=== PATIENT | female | born 1995 | race Caucasian/White ===

== ENCOUNTER 2019-08-31 09:51 | Inpatient (IN) | payer OTHER ==
[2019-08-31] MEDS ORDERED: Sodium Chloride 0.9% 10 ML SDV IV PRN (10:08)
[2019-08-31] MEDS ORDERED: Citric Acid/Sodium Citrate Solution 30 ML Cup PO ONE (10:08)
[2019-08-31] MEDS ORDERED: ceFAZolin 2 GM in Premix Bag 1 BAG IV ONE (10:08)
[2019-08-31] MEDS ORDERED: Sodium Chloride 0.9% 2.5 ML Syringe FLUSH PRN (10:08)
[2019-08-31] MEDS ORDERED: Sodium Chloride 0.9% 10 ML Syringe FLUSH PRN (10:08)
[2019-08-31] MEDS ORDERED: Oxytocin/0.9 % Sodium Chloride 30 UNIT/500 ML BAG IV SCH (10:15)
[2019-08-31] MEDS: Lactated Ringers 1,000 ML IV SCH ×4 (10:17→21:13)
--- NOTE | 2019-08-31 10:51 | PCM.PREANE ---
Preanesthetic Assessment - Anesthesia/Transfusion/Family Hx Anesthesia History: Prior Anesthesia Without Reaction Family History of Anesthesia Reaction: No Transfusion History: No Prior Transfusion(s) - Review of Systems General: No Symptoms Pulmonary: No Symptoms Cardiovascular: No Symptoms Gastrointestinal: No Symptoms Neurological: No Symptoms Other: Reports: None - Physical Assessment NPO Status Date: 08/30/19 Height: 5 ft 1.5 in Weight: 101.605 kg ASA Class: 2 Mental Status: Alert & Oriented x3 Airway Class: Mallampati = 2 Dentition: Reports: Normal Dentition ROM/Head Extension: Full Lungs: Clear to Auscultation, Normal Respiratory Effort Cardiovascular: Regular Rate, Regular Rhythm - Allergies Allergies/Adverse Reactions: Allergies Allergy/AdvReac Type Severity Reaction Status Date / Time ciprofloxacin [From Cipro] Allergy Hives Verified 08/28/19 07:06 ciprofloxacin HCl Allergy Hives Verified 08/28/19 07:06 [From Cipro] - Blood Blood Available: Yes - Anesthesia Plan Pre-Op Medication Ordered: Other (bicitra) - Acknowledgements Anesthesia Type Planned: Spinal Pt an Appropriate Candidate for the Planned Anesthesia: Yes Alternatives and Risks of Anesthesia Discussed w Pt/Guardian: Yes Pt/Guardian Understands and Agrees with Anesthesia Plan: Yes Additional Comments: scheduled elective repeat c section, pmh sig for thyroid replacement. prior c section sttarted as a labor epidural and was also used for her c section. PLAN: spinal with duramorph PreAnesthesia Questionnaire - Past Health History Medical/Surgical History: Denies Medical/Surgical History HEENT History: Reports: Other (See Below) Other HEENT History: wears glasses Cardiovascular History: Reports: None Respiratory History: Reports: None Gastrointestinal History: Reports: Other (See Below) Other Gastrointestinal History: occasional heartburn with Genitourinary History: Reports: None [facility] NURSE History: Reports: Musculoskeletal History: Reports: None Neurological History: Reports: None Psychiatric History: Reports: None Endocrine/Metabolic History: Reports: Hypothyroidism, Obesity/BMI 30+ Hematologic History: Reports: None Immunologic History: Reports: None Oncologic (Cancer) History: Reports: None Dermatologic History: Reports: Eczema Other Dermatologic History: eczema to hands - Past Surgical History Head Surgeries/Procedures: Reports: None HEENT Surgical History: Reports: None Cardiovascular Surgical History: Reports: None Respiratory Surgical History: Reports: None GI Surgical History: Reports: None Female Surgical History: Reports: Section Endocrine Surgical History: Reports: None Neurological Surgical History: Reports: None Musculoskeletal Surgical History: Reports: None Oncologic Surgical History: Reports: None - SUBSTANCE USE Smoking Status *Q: Former Smoker - HOME MEDS Home Medications: Home Meds Levothyroxine Sodium [Levoxyl] 50 mcg PO DAILY 08/28/19 [History] - CURRENT (IN HOUSE) MEDS Current Meds: Current Medications Lactated Ringer's (Ringers, Lactated) 1,000 mls @ 500 mls/hr IV BOLUS [facility] Last Admin: 08/31/19 10:17 Dose: 500 mls/hr Oxytocin/Sodium Chloride (Oxytocin 30 Unit/500 Ml-Ns) 30 unit in 500 mls @ 250 mls/hr IV TITRATE [facility] Sodium Chloride (Saline Flush) 10 ml FLUSH ASDIRECTED PRN PRN Reason: Keep Vein Open Sodium Chloride (Saline Flush) 2.5 ml FLUSH ASDIRECTED PRN PRN Reason: Keep Vein Open Sodium Chloride (Normal Saline) 10 ml IV ASDIRECTED PRN PRN Reason: IV Use Discontinued Medications Citric Acid/Sodium Citrate (Bicitra Solution) 30 ml PO ONETIME ONE Stop: 08/31/19 10:09 Cefazolin Sodium/Dextrose 2 gm (/ Premix) 50 mls @ 100 mls/hr IV ONETIME ONE Stop: 08/31/19 10:37
[2019-08-31] MEDS ORDERED: Morphine PF 10 MG/10 ML SDV ONE (11:49)
[2019-08-31] MEDS ORDERED: Ondansetron 4 MG/2 ML SDV ONE (11:49)
[2019-08-31] MEDS ORDERED: Oxytocin 10 Units/1 ML SDV ONE (11:49)
[2019-08-31] MEDS ORDERED: Phenylephrine/Normal Saline 100 MCG/ML 10 ML Syringe ONE (12:06)
[2019-08-31] MEDS ORDERED: Phenylephrine 1% 10 MG/ML SDV ONE (12:08)
[2019-08-31] MEDS ORDERED: Glycopyrrolate 0.2 MG/ML SDV ONE (12:10)
[2019-08-31] MEDS ORDERED: Midazolam 1 MG/ML 2 ML SDV ONE (12:19)
[2019-08-31] MEDS ORDERED: Bisacodyl 10 MG Supp RECTAL PRN (12:54)
[2019-08-31] MEDS ORDERED: Ondansetron 4 MG/2 ML SDV IVPUSH PRN (12:54)
[2019-08-31] MEDS ORDERED: Misoprostol 200 MCG Tab RECTAL PRN (12:54)
[2019-08-31] MEDS ORDERED: Ibuprofen 800 MG Tab PO PRN (12:54)
[2019-08-31] MEDS ORDERED: Aluminum Hydroxide/Magnesium Hydroxide/Simethicone Susp 30 ML Cup PO PRN (12:54)
[2019-08-31] MEDS ORDERED: Lanolin 100% Cream 7 GM Tube TOP PRN (12:54)
[2019-08-31] MEDS ORDERED: Tranexamic Acid 1,000 MG in Sodium Chloride 0.9% 100 ML IV PRN (12:54)
[2019-08-31] MEDS ORDERED: diphenhydrAMINE 50 MG/ML SDV IVPUSH PRN (12:54)
[2019-08-31] MEDS ORDERED: Oxytocin 10 Units/1 ML SDV IM PRN (12:54)
[2019-08-31] MEDS ORDERED: Methylergonovine 0.2 MG/1 ML Amp IM PRN (12:54)
[2019-08-31] MEDS ORDERED: Acetaminophen/oxyCODONE 325-5 MG Tab PO PRN (12:54)
--- NOTE | 2019-08-31 12:54 | PCM.OPNOTE ---
- General Post-Op/Procedure Note Date of Surgery/Procedure: 08/31/19 Operative Procedure(s): Repeat c section Findings: Viable male APGARs 8, 9 weight 4000 gm. Intact placenta with 3V cord Pre Op Diagnosis: 39 week IUP. Previous c section, desires repeat Post-Op Diagnosis: Same Anesthesia Technique: Spinal Primary Surgeon: Leny Nunes Fluid Replacement, Intraop: 1,600 EBL in mLs: 500 Complications: none known Condition: Stable Free Text/Narrative:: Dictation [id number]
[2019-08-31] MEDS: Ketorolac 30 MG/ML SDV IVPUSH SCH ×2 (13:19→18:47)
[2019-08-31] MEDS ORDERED: Promethazine 25 MG/ML SDV IM ONE (13:31)
[2019-08-31] MEDS ORDERED: Promethazine 25 MG/ML SDV ONE (13:33)
--- NOTE | 2019-08-31 13:56 | OR ---
SURGEON: Leny Nunes M.D. DATE OF PROCEDURE: 08/31/2019 PREOPERATIVE DIAGNOSES: 1. A 39-week intrauterine . 2. Previous section, desires repeat. POSTOPERATIVE DIAGNOSES: 1. A 39-week intrauterine . 2. Previous section, desires repeat. PROCEDURE: Repeat low-transverse section. PRIMARY SURGEON: Leny Nunes MD. SURVEILLANCE DUAL RATE OFFICER: Jonathan Hernandez. ANESTHESIA: Spinal. ESTIMATED BLOOD LOSS: 500 mL. FLUIDS: 1600 mL of crystalloid. COMPLICATIONS: None known. FINDINGS: Viable male. scores 8 at one minute and 9 at five minutes. Weight of 4000 g. Intact placenta, 3-vessel cord. Normal-appearing pelvis. DISPOSITION: Infant to nursery, mom to PACU in stable condition. PROCEDURE DETAILS: Sheron is a 24-year-old, G3, P2, at 39 weeks' gestational age who presents on the morning of 08/31/2019 for scheduled repeat delivery. Risks of procedure have been discussed. Proper consent obtained. The patient was taken to the operating room where she underwent spinal anesthetic, was then placed in dorsal supine position with leftward tilt. SCDs to lower extremities. Mccartney to gravity. Received Ancef prophylactically. Time - out was performed. After being prepped and draped in the usual sterile fashion, anesthesia was tested and found to be adequate. Previous Pfannenstiel scar was now excised. Subcutaneous tissue was incised down to the level of the rectus fascia, which was incised in midline, lateralized and dissected sharply and bluntly. The superior aspect of fascia was tented upward, dissected sharply and bluntly away from underlying muscle. In a similar aspect, this was performed in the inferior aspect of the fascia. Rectus muscle was in midline. Peritoneum was entered. Rectus muscle and peritoneum were lateralized bluntly. Uterine position and position palpated. Self-retaining retractor now gently placed. Bladder flap was created sharply and bluntly. Bladder was mobilized away from the lower uterine segment. Low-transverse hysterotomy was now performed. Uterine cavity was entered with blunt-ended scalpel. Hysterotomy was lateralized bluntly. Amniotomy was performed, clear fluid was returned. Head was flexed, delivered from the pelvis. The head was delivered followed by anterior shoulder, posterior shoulder, and the remainder of the body without difficulty. The infant's oropharynx and nares were bulb suctioned. Cord was clamped x2 and cut. was handed off to attending nursery staff. Cord arterial, cord venous, cord blood sampling obtained. The placenta was now delivered. Uterine cavity was cleared of all clot and debris. Hysterotomy was repaired using 0 Vicryl in continuous running locked fashion followed by a re- imbricating layer. Areas of serosal oozing were now cauterized. Posterior aspect of the uterus was inspected. No defects or hematomas were found to be forming. The region was well irrigated, suction dried. Uterus returned to the abdominal cavity. Colonic gutters were cleared of all clot and debris, well irrigated, suction dried. Hysterotomy was again inspected, found to be hemostatic. Self-retaining retractor now gently removed. Bladder blade was placed. Hysterotomy once again inspected, found to be hemostatic. Bladder blade was removed. The rectus muscle and peritoneum were now reapproximated using 0 Vicryl in inverted mattress suture technique. Anterior aspect of the muscle, posterior aspect of the fascia closely inspected. Any areas of oozing were cauterized. The rectus fascia was reapproximated using 0 Vicryl in continuous running fashion, beginning laterally on each side and meeting in the midline. Subcutaneous tissue was well irrigated, suction dried. Any areas of oozing were cauterized. Skin edges were reapproximated using 4-0 Vicryl on a Raheel needle in subcuticular fashion followed by half-inch Steri- Strips and Mastisol. Uterus remained firm. Sponge, instrument, and needle count was correct x2. The patient has tolerated the procedure well overall. She will go to PACU in stable condition. DAYNE / DIOGO /[id number] STACIE
[2019-08-31] MEDS: Simethicone 80 MG Tab.Chew PO SCH (17:41)
[2019-08-31] MEDS: Docusate Sodium 100 MG Cap PO SCH (21:13)
[2019-09-01] MEDS: Simethicone 80 MG Tab.Chew PO SCH ×4 (01:18→17:59)
[2019-09-01] MEDS: Ketorolac 30 MG/ML SDV IVPUSH SCH ×3 (01:19→12:58)
--- NOTE | 2019-09-01 07:46 | PCM.PNPP ---
- General Info Date of Service: 09/01/19 Subjective Update: 24yo s/p Repeat , Good pain control PPD 1 Functional Status: Reports: Pain Controlled, Tolerating Diet, Ambulating, Urinating - Review of Systems General: Reports: No Symptoms HEENT: Reports: No Symptoms Pulmonary: Reports: No Symptoms Cardiovascular: Reports: No Symptoms Gastrointestinal: Reports: No Symptoms Genitourinary: Reports: No Symptoms Musculoskeletal: Reports: No Symptoms Skin: Reports: No Symptoms Neurological: Reports: No Symptoms Psychiatric: Reports: No Symptoms - General Info Date of Service: 09/01/19 - Patient Data Vital Signs - Most Recent: Last Vital Signs Temp 35.3 C 09/01/19 04:41 Pulse 97 09/01/19 06:00 Resp 17 09/01/19 06:00 BP 99/53 L 09/01/19 04:41 Pulse Ox 97 09/01/19 06:00 Weight - Most Recent: 99.79 kg I&O - Last 24 Hours: Intake & Output 08/31/19 09/01/19 09/01/19 22:59 06:59 14:59 Output Total 700 Balance -700 Lab Results - Last 24 Hours: Laboratory Results - last 24 hr 08/31/19 08/31/19 08/31/19 Range/Units 10:50 10:50 12:21 WBC 13.58 H (4.0-11.0) K/uL RBC 4.24 L (4.30-5.90) M/uL Hgb 12.6 (12.0-16.0) g/dL Hct 37.3 (36.0-46.0) % MCV 88.0 (80.0-98.0) fL MCH 29.7 (27.0-32.0) pg MCHC 33.8 (31.0-37.0) g/dL RDW Std Deviation 43.7 (28.0-62.0) fl RDW Coeff of Demetra 14 (11.0-15.0) % Plt Count 194 (150-400) K/uL MPV 11.00 (7.40-12.00) fL Nucleated RBC % 0.0 /100WBC Nucleated RBCs # 0 K/uL Cord ABG pH 7.287 (7.18-7.38) Cord ABG Base Excess -3 (-10--2) Cord VBG pH (7.25-7.45) Cord VBG Base Excess (-10--2) Blood Type A POSITIVE Antibody Screen POSITIVE Antibody Identification Anti-Jka Antigen Typing Jka Antigen - NEGATIVE Crossmatch See Detail 08/31/19 09/01/19 Range/Units 12:21 07:11 WBC (4.0-11.0) K/uL RBC (4.30-5.90) M/uL Hgb 11.0 L (12.0-16.0) g/dL Hct 33.0 L (36.0-46.0) % MCV (80.0-98.0) fL MCH (27.0-32.0) pg MCHC (31.0-37.0) g/dL RDW Std Deviation (28.0-62.0) fl RDW Coeff of Demetra (11.0-15.0) % Plt Count (150-400) K/uL MPV (7.40-12.00) fL Nucleated RBC % /100WBC Nucleated RBCs # K/uL Cord ABG pH (7.18-7.38) Cord ABG Base Excess (-10--2) Cord VBG pH 7.324 (7.25-7.45) Cord VBG Base Excess -4 (-10--2) Blood Type Antibody Screen Antibody Identification Antigen Typing Crossmatch Med Orders - Current: Current Medications Al Hydroxide/Mg Hydroxide (Mag-Al Plus) 30 ml PO Q8H PRN PRN Reason: Heartburn Bisacodyl (Dulcolax) 10 mg RECTAL ONETIME PRN PRN Reason: Constipation Diphenhydramine HCl (Benadryl) 25 mg IVPUSH Q6H PRN PRN Reason: Itching or Nausea Docusate Sodium (Colace) 100 mg PO BID [facility] Last Admin: 08/31/19 21:13 Dose: 100 mg Emollient Ointment (Lansinoh Hpa) 0 gm TOP ASDIRECTED PRN PRN Reason: Sore Nipples Lactated Ringer's (Ringers, Lactated) 1,000 mls @ 500 mls/hr IV BOLUS [facility] Last Admin: 08/31/19 11:20 Dose: 500 mls/hr Oxytocin/Sodium Chloride (Oxytocin 30 Unit/500 Ml-Ns) 30 unit in 500 mls @ 250 mls/hr IV TITRATE [facility] Tranexamic Acid 1,000 mg/ (Sodium Chloride) 110 mls @ 660 mls/hr IV ONETIME PRN PRN Reason: Bleeding Lactated Ringer's (Ringers, Lactated) 1,000 mls @ 125 mls/hr IV ASDIRECTED [facility] Last Admin: 08/31/19 21:13 Dose: 125 mls/hr Ibuprofen (Motrin) 800 mg PO Q8H PRN PRN Reason: mild pain or fever Ketorolac Tromethamine (Toradol) 30 mg IVPUSH Q6H [facility] Stop: 09/01/19 13:01 Last Admin: 09/01/19 06:49 Dose: 30 mg Methylergonovine Maleate (Methergine) 0.2 mg IM ONETIME PRN PRN Reason: Excessive Vaginal Bleeding Misoprostol (Cytotec) 1,000 mcg RECTAL ONETIME PRN PRN Reason: excessive bleeding Ondansetron HCl (Zofran) 4 mg IVPUSH Q4H PRN PRN Reason: Nausea/Vomiting Last Admin: 08/31/19 17:22 Dose: 4 mg Oxycodone/Acetaminophen (Percocet 325-5 Mg) 1 tab PO Q4H PRN PRN Reason: Pain (moderate 4-6) Oxycodone/Acetaminophen (Percocet 325-5 Mg) 2 tab PO Q4H PRN PRN Reason: Pain (moderate 4-6) Oxytocin (Pitocin) 10 unit IM ASDIRECTED PRN PRN Reason: Excessive Vaginal Bleeding Simethicone (Simethicone) 160 mg PO QID [facility] Last Admin: 09/01/19 06:50 Dose: 160 mg Sodium Chloride (Saline Flush) 10 ml FLUSH ASDIRECTED PRN PRN Reason: Keep Vein Open Sodium Chloride (Saline Flush) 2.5 ml FLUSH ASDIRECTED PRN PRN Reason: Keep Vein Open Sodium Chloride (Normal Saline) 10 ml IV ASDIRECTED PRN PRN Reason: IV Use Discontinued Medications Citric Acid/Sodium Citrate (Bicitra Solution) 30 ml PO ONETIME ONE Stop: 08/31/19 10:09 Last Admin: 08/31/19 11:32 Dose: 15 ml Glycopyrrolate (Robinul) Confirm Administered Dose 0.2 mg .ROUTE .STK-MED ONE Stop: 08/31/19 12:11 Cefazolin Sodium/Dextrose 2 gm (/ Premix) 50 mls @ 100 mls/hr IV ONETIME ONE Stop: 08/31/19 10:37 Midazolam HCl (Versed 1 Mg/Ml) Confirm Administered Dose 2 mg .ROUTE .STK-MED ONE Stop: 08/31/19 12:20 Morphine Sulfate (Duramorph Pf) Confirm Administered Dose 10 mg .ROUTE .STK-MED ONE Stop: 08/31/19 11:50 Ondansetron HCl (Zofran) Confirm Administered Dose 4 mg .ROUTE .STK-MED ONE Stop: 08/31/19 11:50 Oxytocin (Pitocin) Confirm Administered Dose 30 unit .ROUTE .STK-MED ONE Stop: 08/31/19 11:50 Phenylephrine HCl (Phenylephrine In Ns 100 Mcg/Ml) Confirm Administered Dose 1 mg .ROUTE .STK-MED ONE Stop: 08/31/19 12:07 Phenylephrine HCl (Yoni-Synephrine) Confirm Administered Dose 10 mg .ROUTE .STK- MED ONE Stop: 08/31/19 12:09 Promethazine HCl (Phenergan) 12.5 mg IM ONETIME ONE Stop: 08/31/19 13:32 Last Admin: 08/31/19 13:36 Dose: 12.5 mg Promethazine HCl (Phenergan) Confirm Administered Dose 25 mg .ROUTE .STK-MED ONE Stop: 08/31/19 13:34 - Interaction Support Person: - Recovery Exam Fundal Tone: Firm Fundal Level: 1 Fingerbreadths Below Umbilicus Fundal Placement: Midline Lochia Amount: Scant Lochia Color: Rubra/Red Perineum Description: Intact, Minimal Bruising/Swelling Episiotomy/Laceration: None Bladder Status: Indwelling Catheter in Place Urinary Elimination: Indwelling Catheter - Exam General: Alert HEENT: Pupils Equal Neck: Supple Lungs: Clear to Auscultation Cardiovascular: Regular Rate, Regular Rhythm GI/Abdominal Exam: Normal Bowel Sounds Extremities: Normal Inspection Wound/Incisions: Dressing Dry and Intact Neurological: No New Focal Deficit Psy/Mental Status: Alert - Problem List & Annotations (1) delivery, delivered, current hospitalization SNOMED Code(s): 932718957 Code(s): O82 - ENCOUNTER FOR DELIVERY WITHOUT INDICATION Status: Acute Current Visit: No - Problem List Review Problem List Initiated/Reviewed/Updated: Yes - Assessment Assessment:: 24yo P1 s/p Repeat POD 1 Stable , ambulating , voiding and tolerating regular diet - Plan Plan:: Routine Pain control as needed Ambulating [place] Possible discharge tomorrow
--- NOTE | 2019-09-01 08:57 | PCM48HPAN ---
Post Anesthesia Note - EVALUATION WITHIN 48HRS OF ANESTHETIC Vital Signs in Normal Range: Yes Patient Participated in Evaluation: Yes Respiratory Function Stable: Yes Airway Patent: Yes Cardiovascular Function Stable: Yes Hydration Status Stable: Yes Pain Control Satisfactory: Yes Nausea and Vomiting Control Satisfactory: Yes Mental Status Recovered: Yes Vital Signs: Last Vital Signs Temp 36.1 C 09/01/19 08:00 Pulse 90 09/01/19 08:00 Resp 16 09/01/19 08:00 BP 99/53 L 09/01/19 04:41 Pulse Ox 98 09/01/19 08:00
[2019-09-01] MEDS: Docusate Sodium 100 MG Cap PO SCH ×2 (10:19→20:53)
[2019-09-01] MEDS: Acetaminophen/oxyCODONE 325-5 MG Tab PO PRN (17:58)
[2019-09-02] MEDS: Acetaminophen/oxyCODONE 325-5 MG Tab PO PRN ×2 (00:01→04:48)
[2019-09-02] MEDS: Simethicone 80 MG Tab.Chew PO SCH ×2 (00:04→08:01)
[2019-09-02] MEDS: Docusate Sodium 100 MG Cap PO SCH (08:01)
[2019-09-02 08:03] VITALS: BP 106/67; PULSE 78
--- NOTE | 2019-09-02 10:18 | PCM.PNPP ---
- General Info Date of Service: 09/02/19 Subjective Update: 24yo s/p Repeat , Good pain control POD 2 Functional Status: Reports: Pain Controlled, Tolerating Diet, Ambulating, Urinating - Review of Systems General: Reports: No Symptoms HEENT: Reports: No Symptoms Pulmonary: Reports: No Symptoms Cardiovascular: Reports: No Symptoms Gastrointestinal: Reports: No Symptoms Genitourinary: Reports: No Symptoms Musculoskeletal: Reports: No Symptoms Skin: Reports: No Symptoms Neurological: Reports: No Symptoms Psychiatric: Reports: No Symptoms - General Info Date of Service: 09/02/19 - Patient Data Vital Signs - Most Recent: Last Vital Signs Temp 36.1 C 09/02/19 08:00 Pulse 78 09/02/19 08:00 Resp 16 09/02/19 08:00 BP 106/67 09/02/19 08:00 Pulse Ox 97 09/02/19 08:00 Weight - Most Recent: 99.79 kg Med Orders - Current: Current Medications Al Hydroxide/Mg Hydroxide (Mag-Al Plus) 30 ml PO Q8H PRN PRN Reason: Heartburn Bisacodyl (Dulcolax) 10 mg RECTAL ONETIME PRN PRN Reason: Constipation Diphenhydramine HCl (Benadryl) 25 mg IVPUSH Q6H PRN PRN Reason: Itching or Nausea Docusate Sodium (Colace) 100 mg PO BID [facility] Last Admin: 09/02/19 08:01 Dose: 100 mg Emollient Ointment (Lansinoh Hpa) 0 gm TOP ASDIRECTED PRN PRN Reason: Sore Nipples Lactated Ringer's (Ringers, Lactated) 1,000 mls @ 500 mls/hr IV BOLUS [facility] Last Admin: 08/31/19 11:20 Dose: 500 mls/hr Oxytocin/Sodium Chloride (Oxytocin 30 Unit/500 Ml-Ns) 30 unit in 500 mls @ 250 mls/hr IV TITRATE [facility] Tranexamic Acid 1,000 mg/ (Sodium Chloride) 110 mls @ 660 mls/hr IV ONETIME PRN PRN Reason: Bleeding Lactated Ringer's (Ringers, Lactated) 1,000 mls @ 125 mls/hr IV ASDIRECTED [facility] Last Admin: 08/31/19 21:13 Dose: 125 mls/hr Ibuprofen (Motrin) 800 mg PO Q8H PRN PRN Reason: mild pain or fever Last Admin: 09/02/19 04:47 Dose: 800 mg Methylergonovine Maleate (Methergine) 0.2 mg IM ONETIME PRN PRN Reason: Excessive Vaginal Bleeding Misoprostol (Cytotec) 1,000 mcg RECTAL ONETIME PRN PRN Reason: excessive bleeding Ondansetron HCl (Zofran) 4 mg IVPUSH Q4H PRN PRN Reason: Nausea/Vomiting Last Admin: 08/31/19 17:22 Dose: 4 mg Oxycodone/Acetaminophen (Percocet 325-5 Mg) 1 tab PO Q4H PRN PRN Reason: Pain (moderate 4-6) Last Admin: 09/01/19 16:25 Dose: 1 tab Oxycodone/Acetaminophen (Percocet 325-5 Mg) 2 tab PO Q4H PRN PRN Reason: Pain (moderate 4-6) Last Admin: 09/02/19 04:48 Dose: 2 tab Oxytocin (Pitocin) 10 unit IM ASDIRECTED PRN PRN Reason: Excessive Vaginal Bleeding Simethicone (Simethicone) 160 mg PO QID [facility] Last Admin: 09/02/19 08:01 Dose: 160 mg Sodium Chloride (Saline Flush) 10 ml FLUSH ASDIRECTED PRN PRN Reason: Keep Vein Open Sodium Chloride (Saline Flush) 2.5 ml FLUSH ASDIRECTED PRN PRN Reason: Keep Vein Open Sodium Chloride (Normal Saline) 10 ml IV ASDIRECTED PRN PRN Reason: IV Use Discontinued Medications Citric Acid/Sodium Citrate (Bicitra Solution) 30 ml PO ONETIME ONE Stop: 08/31/19 10:09 Last Admin: 08/31/19 11:32 Dose: 15 ml Glycopyrrolate (Robinul) Confirm Administered Dose 0.2 mg .ROUTE .STK-MED ONE Stop: 08/31/19 12:11 Cefazolin Sodium/Dextrose 2 gm (/ Premix) 50 mls @ 100 mls/hr IV ONETIME ONE Stop: 08/31/19 10:37 Ketorolac Tromethamine (Toradol) 30 mg IVPUSH Q6H [facility] Stop: 09/01/19 13:01 Last Admin: 09/01/19 12:58 Dose: 30 mg Midazolam HCl (Versed 1 Mg/Ml) Confirm Administered Dose 2 mg .ROUTE .STK-MED ONE Stop: 08/31/19 12:20 Morphine Sulfate (Duramorph Pf) Confirm Administered Dose 10 mg .ROUTE .STK-MED ONE Stop: 08/31/19 11:50 Ondansetron HCl (Zofran) Confirm Administered Dose 4 mg .ROUTE .STK-MED ONE Stop: 08/31/19 11:50 Oxytocin (Pitocin) Confirm Administered Dose 30 unit .ROUTE .STK-MED ONE Stop: 08/31/19 11:50 Phenylephrine HCl (Phenylephrine In Ns 100 Mcg/Ml) Confirm Administered Dose 1 mg .ROUTE .STK-MED ONE Stop: 08/31/19 12:07 Phenylephrine HCl (Yoni-Synephrine) Confirm Administered Dose 10 mg .ROUTE .STK- MED ONE Stop: 08/31/19 12:09 Promethazine HCl (Phenergan) 12.5 mg IM ONETIME ONE Stop: 08/31/19 13:32 Last Admin: 08/31/19 13:36 Dose: 12.5 mg Promethazine HCl (Phenergan) Confirm Administered Dose 25 mg .ROUTE .STK-MED ONE Stop: 08/31/19 13:34 - Interaction Support Person: - Recovery Exam Fundal Tone: Firm Fundal Level: 1 Fingerbreadths Below Umbilicus Fundal Placement: Midline Lochia Amount: Scant Lochia Color: Rubra/Red Perineum Description: Intact, Minimal Bruising/Swelling Episiotomy/Laceration: None Bladder Status: Voiding Urinary Elimination: Voided - Exam General: Alert HEENT: Pupils Equal Lungs: Clear to Auscultation Cardiovascular: Regular Rate, Regular Rhythm GI/Abdominal Exam: Normal Bowel Sounds Extremities: Normal Inspection Wound/Incisions: Dressing Dry and Intact Psy/Mental Status: Alert - Problem List & Annotations (1) delivery, delivered, current hospitalization SNOMED Code(s): 786530499 Code(s): O82 - ENCOUNTER FOR DELIVERY WITHOUT INDICATION Status: Acute Current Visit: No - Problem List Review Problem List Initiated/Reviewed/Updated: Yes - Assessment Assessment:: 24yo P1 s/p Repeat POD 2 Stable , ambulating , voiding and tolerating regular diet - Plan Plan:: Routine Discharge home
== END 2019-09-02 11:17 | disposition home or self-care (01) | DRG 788 ==
LOC: MW.OB 09:51 → OBSVTOIN 12:54 → MW.OB 17:40
PROVIDERS: ADMIT Obstetrics & Gynecology; ATTEND Obstetrics & Gynecology
PROC: 10D00Z1 Extraction of Products of Conception, Low, Open Approach (ICD-10-PCS; principal; 2019-08-31)
DX: O34.211 Maternal care for low transverse scar from previous cesarean delivery (principal); O99.284 Endocrine, nutritional and metabolic diseases complicating childbirth; E03.9 Hypothyroidism, unspecified; O99.52 Diseases of the respiratory system complicating childbirth; J45.909 Unspecified asthma, uncomplicated; O99.214 Obesity complicating childbirth; E66.9 Obesity, unspecified; Z3A.39 39 weeks gestation of pregnancy; Z79.899 Other long term (current) drug therapy; Z79.51 Long term (current) use of inhaled steroids; Z87.891 Personal history of nicotine dependence; Z88.1 Allergy status to other antibiotic agents; Z37.0 Single live birth
CPT/HCPCS: 01961; 36415; 59025; 82803; 85014; 85018; 85027; 86592; 86850; 86870; 86900; 86901; 86902; 86920; 86921; 86922; A9270-GY; J1885; J2250; J2270; J2370; J2405; J2550; J2590; J3490; J7120

== ENCOUNTER 2023-04-30 04:07 | Emergency (ER) | payer OTHER ==
[2023-04-30 04:17] VITALS: BP 127/77; PULSE 106
[2023-04-30] MEDS ORDERED: Acetaminophen 325 MG Tab PO ONE (04:32)
[2023-04-30 05:46] LABS: BASOPHILS PERCENT AUTO 0.2 % (0.0-1.5); EOSINOPHILS ABSOLUTE AUTO 0.3 K/uL (0.0-0.7); EOSINOPHILS PERCENT AUTO 3.3 % (0.0-7.0); HEMATOCRIT 38.6 % (36.0-46.0); LYMPHOCYTES ABSOLUTE AUTO 1.9 K/uL (0.6-2.4); LYMPHOCYTES PERCENT AUTO 20.2 % (16.0-40.0); MEAN CORPUSCULAR HEMOGLOBIN 30.1 pg (27.0-32.0); MEAN CORPUSCULAR HGB CONC 33.7 g/dL (31.0-37.0); MEAN CORPUSCULAR VOLUME 89.4 fL (80.0-98.0); MONOCYTES ABSOLUTE AUTO 0.5 K/uL (0.0-0.8); MONOCYTES PERCENT AUTO 5.6 % (0.0-15.0); NEUTROPHILS ABSOLUTE AUTO 6.8 K/uL (1.4-5.7); NEUTROPHILS PERCENT AUTO 70.7 % (48.0-80.0); RED BLOOD CELL COUNT 4.32 M/uL (4.30-5.90); WHITE BLOOD CELL COUNT,WBC 9.57 K/uL (4.0-11.0)
[2023-04-30 06:08] LABS: ALBUMIN 3.7 g/dL (3.4-5.0); BILIRUBIN TOTAL 0.7 mg/dL (0.2-1.0); CARBON DIOXIDE,CO2 28.2 mmol/L (21.0-32.0); CREATININE 0.9 mg/dL (0.6-1.0); EST CRCL DRUG DOSING (CG) 72.95 mL/min; POTASSIUM,K 3.2 mmol/L (3.5-5.1); PROTEIN TOTAL,TP 7.3 g/dL (6.4-8.2)
[2023-04-30 06:39] LABS: PLATELET COUNT,PLT 107 K/uL (150-400)
== END 2023-04-30 07:33 | disposition home or self-care (01) ==
LOC: MW.ED 04:07
DX: O03.9 Complete or unspecified spontaneous abortion without complication (principal); E03.9 Hypothyroidism, unspecified; E66.9 Obesity, unspecified; Z88.1 Allergy status to other antibiotic agents; Z79.899 Other long term (current) drug therapy; Z68.31 Body mass index [BMI] 31.0-31.9, adult
CPT/HCPCS: 36415; 76817; 80053; 84702; 85025; 99284; A9270; 99283

== ENCOUNTER 2024-06-09 22:17 | Inpatient (IN) | payer BC ==
[2024-06-09] MEDS ORDERED: Sodium Chloride 0.9% 20 ML SDV IV PRN (23:06)
[2024-06-09] MEDS ORDERED: Sodium Chloride 0.9% 2.5 ML Syringe FLUSH PRN (23:06)
[2024-06-09] MEDS: Sodium Chloride 0.9% 10 ML Syringe FLUSH PRN (23:30)
[2024-06-09] MEDS: Ondansetron 4 MG/2 ML SDV IVPUSH ONE (23:30)
[2024-06-09] MEDS: Lactated Ringers 1,000 ML IV ONE (23:30)
[2024-06-10] MEDS: Lactated Ringers 1,000 ML IV SCH ×2 (00:30→10:40)
[2024-06-10] MEDS ORDERED: Acetaminophen 500 MG Tab PO ONE (04:39)
[2024-06-10] MEDS ORDERED: ceFAZolin 2 GM in Sodium Chloride 0.9% 50 ML IV ONE (04:49)
[2024-06-10] MEDS ORDERED: Sodium Chloride 0.9% 10 ML Syringe FLUSH PRN (04:49)
[2024-06-10] MEDS ORDERED: Citric Acid/Sodium Citrate Solution 30 ML Cup PO ONE (04:49)
[2024-06-10] MEDS ORDERED: Sodium Chloride 0.9% 2.5 ML Syringe FLUSH PRN (04:49)
[2024-06-10] MEDS ORDERED: Sodium Chloride 0.9% 20 ML SDV IV PRN (04:49)
[2024-06-10] MEDS ORDERED: Butorphanol 2 MG/ML SDV ONE (04:58)
[2024-06-10] MEDS ORDERED: Oxytocin/0.9 % Sodium Chloride 30 UNIT/500 ML BAG IV SCH (05:00)
[2024-06-10] MEDS ORDERED: Lactated Ringers 1,000 ML IV SCH ×2 (05:00→18:45)
[2024-06-10] MEDS: Butorphanol 2 MG/ML SDV IVPUSH PRN (05:15)
[2024-06-10] MEDS ORDERED: Dexamethasone 4 MG/ML 5 ML MDV ONE (06:08)
[2024-06-10] MEDS ORDERED: ceFAZolin 2 GM Vial ONE (06:08)
[2024-06-10] MEDS ORDERED: dexmedeTOMIDine HCl 200 MCG/2 ML SDV ONE (06:08)
[2024-06-10] MEDS ORDERED: Phenylephrine 1% 10 MG/ML SDV ONE (06:08)
[2024-06-10] MEDS ORDERED: Tranexamic Acid 1,000 MG/10 ML Vial ONE (06:08)
[2024-06-10] MEDS ORDERED: Ondansetron 4 MG/2 ML SDV ONE ×2 (06:08→09:20)
[2024-06-10] MEDS ORDERED: Oxytocin 10 Units/1 ML SDV ONE (06:08)
[2024-06-10] MEDS ORDERED: Ropivacaine 0.5% 5 MG/ML 30 ML SDV ONE (06:08)
[2024-06-10] MEDS ORDERED: Calcium Chloride 10% 1 GM/10 ML Syringe ONE (06:08)
[2024-06-10] MEDS ORDERED: ePHEDrine 50 MG/ML SDV ONE (06:08)
[2024-06-10] MEDS ORDERED: Morphine PF 10 MG/10 ML SDV ONE (06:09)
[2024-06-10] MEDS ORDERED: fentaNYL 100 MCG/2 ML SDV ONE (06:09)
[2024-06-10] MEDS ORDERED: droPERidol 5 MG/2 ML SDV ONE (06:15)
[2024-06-10] MEDS ORDERED: Water For Injection, Sterile 20 ML ONE (06:16)
[2024-06-10 06:19] LABS: HEMATOCRIT 35.5 % (37.0-47.0); HEMOGLOBIN 12.3 g/dL (12.0-16.0); MEAN CORPUSCULAR HEMOGLOBIN 30.2 pg (28.0-32.0); MEAN CORPUSCULAR HGB CONC 34.6 g/dL (32.0-36.0); MEAN CORPUSCULAR VOLUME 87.2 fL (83.0-99.0); MEAN PLATELET VOLUME 11.1 fL (9.4-12.3); PLATELET COUNT,PLT 190 K/uL (150-400); RED BLOOD CELL COUNT 4.07 M/uL (4.10-5.30); WHITE BLOOD CELL COUNT,WBC 19.58 K/uL (3.9-11.3)
[2024-06-10] MEDS ORDERED: Morphine 2 MG/ML SYRINGE IVPUSH PRN (09:04)
[2024-06-10] MEDS ORDERED: fentaNYL 50 MCG/ML SDV IVPUSH PRN (09:04)
[2024-06-10] MEDS ORDERED: Naloxone 0.4 MG/ML SDV IVPUSH PRN (09:04)
[2024-06-10] MEDS ORDERED: HYDROmorphone 1 MG/ML Syringe IVPUSH PRN (09:04)
[2024-06-10] MEDS ORDERED: Albuterol 0.083% 2.5 MG/3 ML Neb Soln NEB PRN (09:04)
[2024-06-10] MEDS ORDERED: ePHEDrine 50 MG/ML SDV IVPUSH PRN (09:04)
[2024-06-10] MEDS ORDERED: Phenylephrine HCl In 0.9% NaCl 1 MG/10 ML Syringe IVPUSH PRN (09:04)
[2024-06-10] MEDS ORDERED: dexmedeTOMIDine HCl 200 MCG/2 ML SDV EPIDUR SCH (09:15)
[2024-06-10] MEDS ORDERED: Ropivacaine HCl/PF 400 MG in Premix Bag 1 BAG EPIDUR SCH (09:15)
[2024-06-10] MEDS ORDERED: Bisacodyl 10 MG Supp RECTAL PRN (09:41)
[2024-06-10] MEDS ORDERED: Ondansetron 4 MG/2 ML SDV IVPUSH PRN (09:41)
[2024-06-10] MEDS ORDERED: diphenhydrAMINE 50 MG/ML SDV IVPUSH PRN (09:41)
[2024-06-10] MEDS ORDERED: Methylergonovine 0.2 MG/1 ML Amp IM PRN (09:41)
[2024-06-10] MEDS ORDERED: Misoprostol 200 MCG Tab RECTAL PRN (09:41)
[2024-06-10 09:48] LABS: PH,UMBILICAL ARTERIAL 7.242 (7.18-7.38); PH,UMBILICAL VENOUS 7.286 (7.25-7.45)
[2024-06-10] MEDS: Ondansetron 4 MG/2 ML SDV IVPUSH PRN (10:21)
[2024-06-10] MEDS: Ketorolac 30 MG/ML SDV IVPUSH SCH (10:23)
[2024-06-10] MEDS: Metoclopramide 10 MG/2 ML SDV IVPUSH PRN (10:30)
[2024-06-10] MEDS: droPERidol 5 MG/2 ML SDV IVPUSH PRN (11:56)
[2024-06-10] MEDS: Scopalamine 1mg/3day Transdermal Patch TRDERM PRN (12:10)
[2024-06-10] MEDS: Acetaminophen 1,000 MG in Premix Bag 1 BAG IV SCH (12:30)
[2024-06-10] MEDS ORDERED: Promethazine 12.5 MG Supp RECTAL ONE (13:56)
[2024-06-10] MEDS: Promethazine 25 MG Supp RECTAL ONE (14:55)
[2024-06-10] MEDS: Docusate Sodium 100 MG Cap PO SCH (21:30)
[2024-06-11 06:37] LABS: HEMATOCRIT 27.6 % (37.0-47.0); HEMOGLOBIN 9.5 g/dL (12.0-16.0)
[2024-06-11] MEDS: Levothyroxine 75 MCG Tab PO SCH (07:33)
[2024-06-11] MEDS: oxyCODONE 5 MG Tab PO PRN (13:41)
[2024-06-11] MEDS: Ibuprofen 800 MG Tab PO PRN (17:19)
[2024-06-11] MEDS: Acetaminophen 500 MG Tab PO PRN (19:32)
[2024-06-12] MEDS: Lanolin 100% Cream 7 GM Tube TOP PRN (04:32)
[2024-06-12 09:08] VITALS: BP 106/59; PULSE 78
== END 2024-06-12 10:50 | disposition home or self-care (01) | DRG 540 ==
LOC: MW.OBCHECK 22:17 → MW.OB 22:18 → MW.OBCHECK 06-10 04:49 → MW.OB 06-10 16:45
PROVIDERS: ADMIT Obstetrics & Gynecology; ATTEND Obstetrics & Gynecology
PROC: 10D00Z1 Extraction of Products of Conception, Low, Open Approach (ICD-10-PCS; principal; 2024-06-10 07:00)
DX: O34.211 Maternal care for low transverse scar from previous cesarean delivery (principal); O99.214 Obesity complicating childbirth; O99.284 Endocrine, nutritional and metabolic diseases complicating childbirth; E03.9 Hypothyroidism, unspecified; Z37.0 Single live birth; Z3A.37 37 weeks gestation of pregnancy
CPT/HCPCS: 01961; 36415; 59025; 64999; 82803; 85014; 85018; 85027; 86592; 86850; 86900; 86901; 86920; 86921; 86922; A9270-GY; J0131; J0595; J0690; J1100; J1790; J1885; J2274; J2371; J2405; J2590; J2765; J2795; J3010; J3490; J7120